=== PATIENT | male | born 1975 | race Caucasian/White ===

== ENCOUNTER 2021-08-03 07:53 | Outpatient (CLI) | payer BC, SELFPAY ==
--- NOTE | 2021-08-03 15:52 | WPDPFTINT ---
PFT Procedure Performed PFT Procedure Performed Spirometry with Pre/Post Bronchodilator Plethysmography (Lung Vol) Diffusing Cap (DLCO) Flow Vol Loop PFT Interpretation This is a pulmonary function test with pre and post-bronchodilator spirometry, plethysmography and diffusing capacity. The test was performed and results interpreted in accordance with the 2019 and 2005 ATS/ERS Task Force guidelines respectively using the Global Lung Function Initiative-2012 reference equations. Patient demonstrated good effort and cooperation. Reproducibility criteria were met. The quality of the pre bronchodilator spirometry maneuver was Grade B and post bronchodilator spirometry maneuver was Grade B. Findings: Spirometry: There is decreased maximal expiratory airflow at low lung volumes with a mildly concave expiratory flow tracing. The pre bronchodilator FVC is 5.64 L, 102% predicted. The pre bronchodilator FEV1 is 3.82 L, 87% predicted. The pre bronchodilator FEV1: FVC ratio 68%. The post bronchodilator FVC is 5.49 L, representing a 3% decrease. The post bronchodilator FEV1 is 3.96 L, representing a 4% increase. The post bronchodilator FEV1: FVC ratio 72%. Plethysmography: The total lung capacity 7.37 L, 100% predicted. The functional residual capacity is 3.75 L, 100% predicted. The residual volume is 1.73 L, 85% predicted. Diffusing capacity: The diffusion capacity unadjusted for hemoglobin a carboxyhemoglobin is 24.1, 73% predicted. The diffusing capacity adjusted for alveolar volume is 3.53, 76% predicted. Impression: There is a mild obstructive abnormality with a normal FEV1 and without significant improvement after inhaling a single dose of albuterol. The lung volumes are normal. The diffusing capacity unadjusted for hemoglobin and carboxyhemoglobin is mildly decreased and normalizes when adjusted for alveolar volume. There are no prior studies for comparison
== END 2021-08-03 07:54 | disposition home or self-care (01) ==
LOC: ANHPFT 07:58
DX: R06.00 Dyspnea, unspecified (principal)
CPT/HCPCS: 94060; 94726; 94729